=== PATIENT | male | born 1995 | race American Indian/Alaskan Native ===

== ENCOUNTER 2019-05-22 16:31 | Emergency (ER) | payer OTHER ==
[2019-05-22 17:13] VITALS: BP 123/55
--- NOTE | 2019-05-22 18:05 | Event Note ---
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
--- NOTE | 2019-05-22 18:10 | Emergency Department Report ---
Chief Complaint: Back Pain/Injury Stated Complaint: LOWER BACK PAIN Time Seen by Provider: 05/22/19 18:04 - HPI History of Present Illness: pt is a 24 yo male who presents to the ED with c/o lower back pain that began a couple hours ago. no fall or injury. no numbness or weakness no bowel or bladder incontinence. 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 no fever. PMHx none. no allergies to meds. non smoker. social ETOH. no drug use. no PCP. 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, 5 out of 5 strength in the bilateral upper extremity and bilateral lower extremity, sensation intact throughout, no focal neuro deficit Patient has no red flag warning signs of back pain No trauma, no unexplained weight loss, no neurologic deficits, ages greater than 50, no fever, no IV drug use, no steroid use, no history of cancer Patient is presenting with a non-medical emergency at this time medical screening examination performed and there is no threat to life or limb will be referred to a primary care physician - Exam Vital Signs: Vital Signs 05/22/19 05/22/19 17:12 17:15 Temperature 99.0 F 99 F Pulse Rate 69 75 Respiratory 16 16 Rate Blood Pressure 123/55 Blood Pressure 123/55 [Right] O2 Sat by Pulse 99 100 Oximetry MSE screening note: Focused history and physical exam performed. ED Disposition for MSE Clinical Impression: Low back strain Qualifiers: Encounter type: initial encounter Qualified Code(s): S39.012A - Strain of muscle, fascia and tendon of lower back, initial encounter Disposition: Z-07 MED SCREENING EXAM-LEFT Is pt being admited?: No Does the pt Need Aspirin: No Condition: Stable Instructions: Muscle Strain (ED) Additional Instructions: please take ibuprofen or tylenol for discomfort. may use ice pack, heating pad, rest, epsom salt bath. follow up with a primary care doctor in the next 2-3 days for reexamination. return to the emergency room for any new or worsening symptoms. Referrals: TOO FISH MD [Staff Physician] - 2-3 Days [facility] [Outside] - 2-3 Days [facility] [Outside] - 2-3 Days Time of Disposition: 18:10 Print Language: CHINESE
== END 2019-05-22 18:54 | disposition left against medical advice (07) ==
LOC: ED 16:31
DX: S39.012A Strain of muscle, fascia and tendon of lower back, initial encounter (principal); X58.XXXA Exposure to other specified factors, initial encounter; Y93.89 Activity, other specified; Y92.488 Other paved roadways as the place of occurrence of the external cause; Y99.8 Other external cause status
CPT/HCPCS: 99282